=== PATIENT | male | born 1985 | race Caucasian/White ===

== ENCOUNTER → 2022-12-11 | Outpatient (CLI) | payer OTHER ==
--- NOTE | 2022-12-11 17:30 | MR ---
EXAMINATION TYPE: MR lumbar spine wo con DATE OF EXAM: 12/11/2022 COMPARISON: None HISTORY: 37-year-old male M54.5, Low back pain TECHNIQUE: Multiplanar, multisequence images of the lumbar spine were acquired without IV contrast. FINDINGS: Vertebral body heights are preserved and alignment is maintained. There is moderate degenerative disc disease with desiccated, narrow common bulging disc at L5-S1. Casey e associated edematous Modic type I endplate changes present here. Mild degenerative disc disease with desiccation and bulging at L4-L5. Small posterior annular fissure here. 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 There is some facet arthropathy lower lumbar spine and mild ligamentum flavum thickening. Conus medullaris is normal. No suspicious bone marrow replacement. At L4-L5, changes result in mild overall narrowing of the spinal canal. Disc material closely approac hes and may abut the traversing left L5 nerve root. There is moderate left and mild right neuroforami nal stenosis here. At L5-S1, mild bulging disc and facet arthropathy. There is mild left greater than right neuroforamin al stenosis. No spinal canal stenosis. IMPRESSION: 1. Degenerative disc disease and facet arthropathy lower lumbar spine. 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 2. Moderate degenerative disc disease at L5-S1 with some associated edematous Modic type I endplate c hange. Changes result in mild left greater than right neural foraminal stenosis here. No spinal canal stenosis. 3. Mild degenerative disc disease at L4-L5 with an associated posterior annular fissure. Disc materia l closely approaches and may abut the traversing left L5 nerve root. There is moderate left and mild right neuroforaminal stenosis. Mild overall narrowing of the spinal canal at this level.
== END | disposition home or self-care (01) ==
LOC: RADMRIMAIN 05:51
DX: M51.36 Other intervertebral disc degeneration, lumbar region (principal); M99.73 Connective tissue and disc stenosis of intervertebral foramina of lumbar region; M51.37 Other intervertebral disc degeneration, lumbosacral region; M47.816 Spondylosis without myelopathy or radiculopathy, lumbar region
CPT/HCPCS: 72148

== ENCOUNTER → 2023-01-19 | Outpatient (CLI) | payer OTHER ==
[2023-01-19 08:36] VITALS: BP 149/86; PULSE 88; RESP 16; TEMP 98.2
== END ==
LOC: PNWHC3 07:31
PROVIDERS: ATTEND Specialist
DX: M51.37 Other intervertebral disc degeneration, lumbosacral region (principal); K21.9 Gastro-esophageal reflux disease without esophagitis; F32.9 Major depressive disorder, single episode, unspecified
CPT/HCPCS: 99211

== ENCOUNTER 2023-02-03 06:43 | Day surgery (SDC) | payer OTHER ==
[2023-02-02 13:19] VITALS: BMI 26.9
[2023-02-03 06:40] VITALS: RESP 18; TEMP 98
[~2023-02-03 06:43] MED LIST: LACTATED RINGERS 1,000 ML IV SCH
[2023-02-03] MEDS ORDERED: IOPAMIDOL M200 10 ML VIAL ONE (07:11)
[2023-02-03] MEDS ORDERED: methylPREDNISolone ACETATE 80 MG/ML 1 ML VIAL ONE (07:11)
--- NOTE | 2023-02-03 07:18 | P.PCN ---
Date of Procedure: 02/03/23 Procedure(s) Performed: PREOPERATIVE DIAGNOSIS: 1- Lumbar Degenerative Disc Diseases 2-failed back surgery syndrome lumbar area POSTOPERATIVE DIAGNOSIS: 1-lumbar degenerative disc disease. 2-failed back surgery syndrome lumbar area. PROCEDURE 1. Lumbar epidural steroid injection under fluoroscopic guidance at the L4-5 level. (Fluoroscopy imaging was available in radiology department) 2. Lumbar epidurogram. ANESTHESIA: Lidocaine 1% 3 and then only. EBL: Minimal PROCEDURE INDICATION: The patient with low back pain and radiculitis symptoms unresponsive to conservative treatment. Fluoroscopy was used to optimize visualization of the needle placement and to maximize safety. PROCEDURE DESCRIPTION / TECHNIQUE: The patient was seen and identified in the preoperative area. Risks, benefits, complications including but not limited to infections ,bleeding ,allergic re action to the medications ,nerve damage and not complete pain releife , and alternatives were discussed with the patient. The patient agreed to proceed with the procedure and signed the consent, and vital signs were stable. Patient was taken to the OR and time out was completed. The patient was placed in the prone position on procedure table and a pillow was placed under the abdomen to reduce lumbar lordosis. The lumbosacral area was prepped and draped in the usual sterile fashion.ere closely monitored during the procedure. Vital signs was monitered during the entire procedure. Using anterior-posterior fluoroscopy, the L4-5 interlaminar space was identified and the skin over this site was marked and then infiltrated with 1% lidocaine subcutaneously. Subsequently, a 20-gauge Tuohy epidural needle was inserted and advanced toward the epidural space using the ``Loss of resistance technique and guided by AP and lateral fluoroscopy. The correct needle position in the epidural space was verified with the injection of 2 mL of the water soluble contrast dye Isovue 200 contrast and observing an excellent epidurogram with the epidural spread of the dye, after negative aspiration for blood and CSF and in the absence of paresthesias. Again after negative aspiration, a 6 ml mixture containing 80 mg of Depo-medrol ( Preservetive Free ), and 2 ml of preservative free Normal Saline, and 2 ml of preservative free lidocaine 1% solution was injected and a washout of epidurogram was seen. Needle was withdrawn intact, skin was cleansed, and bandages were applied. COMPLICATIONS: None DISPOSITION / PLANS: The patient was placed in a supine position and transferred to the recovery area in a stable condition for observation. There was no evidence of lower extremity motor or sensory deficit after the procedure. Patient was discharged from the recovery room after meeting discharge criteria. Home discharge instructions were given to the patient by the staff. The patient was reexamined prior to discharge. The patient will schedule a follow up in the clinic in 2-4 weeks.
[2023-02-03 07:23] VITALS: BP 134/78; PULSE 73
--- NOTE | 2023-02-03 21:34 | FL ---
EXAMINATION TYPE: FL guided pain mgmt statistic DATE OF EXAM: 02/03/2023 FLUOROSCOPY Fluoroscopy time of 6 seconds was used during lumbar epidural steroid injection. 2 image/s document/ s the procedure. DAP 0.35095 mGycm2.
== END 2023-02-03 07:37 | disposition home or self-care (01) ==
LOC: ORPAIN 06:43
PROVIDERS: ATTEND Specialist
DX: M51.16 Intervertebral disc disorders with radiculopathy, lumbar region (principal)
CPT/HCPCS: 62323; J1040; Q9966

== ENCOUNTER 2023-03-17 06:07 | Day surgery (SDC) | payer OTHER ==
[2023-03-12 15:12] VITALS: BMI 26.6
[2023-03-17 06:56] VITALS: TEMP 98
[2023-03-17] MEDS ORDERED: DEXAMETHASONE SOD PHOSPHATE 10 MG/ML 1 ML VIAL ONE (06:59)
[2023-03-17] MEDS ORDERED: IOPAMIDOL M200 10 ML VIAL ONE (06:59)
--- NOTE | 2023-03-17 07:10 | P.PCN ---
Date of Procedure: 03/17/23 Preoperative Diagnosis: Lumbar radiculopathy Postoperative Diagnosis: Same Description of Procedure: PREOPERATIVE DIAGNOSIS: Lumbar radiculopathy POSTOPERATIVE DIAGNOSIS: Lumbar radiculopathy PROCEDURE 1. Transforaminal epidural steroid injection under fluoroscopic guidance left L4-L5 2. Lumbar epidurogram IMAGING Fluoroscopy was used, images where saved to the medical record ANESTHESIA: Local only PROCEDURE DESCRIPTION / TECHNIQUE: The patient was seen and identified in the preoperative area. Risks, benefits, complications, and alternatives were discussed with the patient. The patient agreed to proceed with the procedure and signed the consent, vital signs were stable prior to the procedure. Patient was taken to the OR and time out was completed. The patient was placed in the prone position on procedure table and a pillow was placed under the abdomen to reduce lumbar lordosis. The lumbosacral area was prepped and draped in the usual sterile fashion. Vital signs were closely monitored during the procedure. Using oblique fluoroscopy, the chin of the "Julian dog" at the pedicle and the skin and deeper tissues just below was localized with 1% lidocaine. Subsequently, a 22-gauge 3.5-inch spinal needle was advanced under a tunneled view fluoroscopic guidance just underneath the chin of the "Julian dog". Under lateral fluoroscopy, the needle was then advanced to the posterior border interforaminal space. After negative aspiration of CSF and blood and with no paresthesias, 1 mL of Omnipaque-240 contrast dye was injected excellent epidurogram. Subsequently, a solution totalling 2ml of dexamethasone and PFNS was injected after negative aspiration (total of 10mg of dexamethasone was used). The needle was removed intact. COMPLICATIONS: None DISPOSITION: The patient was placed in a supine position and transferred to the recovery area in a stable condition for observation. There was no evidence of lower extremity motor or sensory deficit after the procedure. Patient was discharged from the recovery room after meeting discharge criteria. Home discharge instructions were given to the patient by the staff. The patient was reexamined prior to discharge. Follow up as directed. Discussed potential trial of diagnostic medial branch blocks if the pain in the lumbar axial spine process.
[2023-03-17 07:18] VITALS: BP 117/73; PULSE 74; RESP 17
--- NOTE | 2023-03-17 08:56 | FL ---
Intraoperative/procedural fluoroscopic services were provided for left transforaminal lumbar epidural steroid injection. Total fluoroscopy time is 7.0 seconds with a total of 1 submitted image to PACS. Total DAP 0.46140 mGym2. Please see the operative note for further details.
== END 2023-03-17 07:28 | disposition home or self-care (01) ==
LOC: ORPAIN 06:07
PROVIDERS: ATTEND Hospitalist
DX: M54.16 Radiculopathy, lumbar region (principal)
CPT/HCPCS: 64483; J1100; Q9966

== ENCOUNTER → 2023-04-28 | Outpatient (CLI) | payer OTHER ==
[2023-04-28 08:13] VITALS: BP 132/72; PULSE 83; RESP 16; TEMP 98
--- NOTE | 2023-04-28 08:28 | P.PAINPG ---
PQRS Measure Charge Sheet Comment: A 37 yr old male with a history of severe and chronic LBP secondary to lumbar DDD and spondylosis with facet arthropathy without myelopathy presents today for evaluatin s/p L TFESI L4-L5 #1. Pt states he experienced 70% pain relief x 6 wks s/p procedure. Pain level is provoked at 8 /10 in intensity, constant, localized in the lumbar spine, predominantly axial, dull in character w occasional shooting towards the L lateral foot. Pain is provoked by lifting, bending. Pain is alleviated with heat, hot showers medications, PT in 2020, physician guided home stretches daily since 2020, topical, swimming, repositioning and rest. Oswestry axial pain score at 16. Interventional pain procedures completed include VANESSA L4-L5 x1, L TFESI L4-L5 x1 Patient is currently on Aleve, Naproxen Patient denies any side effects of the medication(s), denies excessive drowsiness or sleepiness, denies suicidal ideation and reports that the current pain medication is helping to control the pain and improve activities of daily living. Patient denies any motor or sensory deficits. Patient denies any fever or night sweats, denies any change in the bowel movements or urination. Physical Examination: -Constitutional: Cooperative. Not in acute distress . - Neurologic: Cranial nerve II to XII intact. No focal neurological deficits. - Psychatric: Alert & oriented x 3. Matching mood & appropriate affect. Judgment and insight intact. - Musculoskeletal: Cervical spine: Muscle bulk/ tone/ strength in the bilateral upper extremities normal Vertebral body tenderness to palpation over Spurling test positive Distraction test positive Facet loading test positive TTP Thoracic spine Muscle bulk / tone/ strength in the bilateral paraspinal muscles normal Vertebral body tender to palpation over Facet loading test positive TTP Lumbar spine: Vertical incisional scars intact Motor bulk/ tone/ strength lower extremities , thigh and legs : 5/5 Deep tendon reflexes : Normal Knee Jerk. Normal Ankle Jerk . Vertebral body tenderness to palpation over L5 Villalpando Test positive Lumbar Facet Loading Test positive Straight Leg Raise: positive at 30 degrees right side/ left side Gaenslen's Test positive Sacral spine : Severe tenderness over the Sacroiliac joint: right side / left side Range of motion: Flexion of the lumbar spine <60 degrees Range of motion: Extension of the lumbar spine <20 degrees Gaenslen's Test positive right side / left side Michelle test: positive right side / left side Thigh Thrust Test positive right side / left side Sacral Thrust Test positive right side / left side Assessment and plan: Chronic LBP secondary to lumbar DDD, spondylosis with facet arthropathy without myelopathy Recommendation of L TFESI L5-S1 #3. May need a series of injections for optimal pain relief. Risks, benefits of procedure discussed and pt verbalized understanding. Admits to anticoagulant use or medical history of diabetes. Protocol for discontinuation/ continuation of medications lulu procedure discussed. All questions answered. I have spent less than 30 minutes on patient care today. Dr Shukla was available by phone for the evaluation of this patient. The time was used to review the medical records including relevant urine studies and Prescription history (MAPs), review of the available imaging, evaluation and examination of the patient, coordination of care with the medical staff and if applicable referring physicians, as well as creation of the medical record - Pain Location Bilateral Lower Back Non-Pharmacological Interventions: Heat, Home Exercise, Ice, Inactivity, Position/Reposition, Sitting, Stretching Pharmacological Interventions: Epidural, PRN Medication, Topical Medication PQRS Narrative: Hx Alcohol Use (MH) No Home Medications: Ambulatory Orders Ibuprofen 800 mg PO BID 03/12/23 Controlled Substance Measures - Controlled Substance Measures Is patient prescribed a controlled substance at discharge?: No
== END ==
LOC: PNWHC3 07:13
PROVIDERS: ATTEND Specialist
DX: M51.36 Other intervertebral disc degeneration, lumbar region (principal); M47.816 Spondylosis without myelopathy or radiculopathy, lumbar region; G89.29 Other chronic pain
CPT/HCPCS: 99211

== ENCOUNTER 2023-05-12 07:40 | Day surgery (SDC) | payer OTHER ==
[2023-05-12 08:19] VITALS: TEMP 97.6
[2023-05-12] MEDS ORDERED: DEXAMETHASONE SOD PHOSPHATE 10 MG/ML 1 ML VIAL ONE (08:59)
[2023-05-12] MEDS ORDERED: IOPAMIDOL M200 10 ML VIAL ONE (08:59)
[2023-05-12] MEDS ORDERED: ROPIVACAINE 5MG/ML 20ML VIAL ONE (08:59)
[2023-05-12 09:35] VITALS: BP 113/73; PULSE 83; RESP 18
--- NOTE | 2023-05-12 11:01 | P.PCN ---
Description of Procedure: PREOPERATIVE DIAGNOSIS: 1-Lumbar radiculopathy . 2-lumbar degenerative disc disease. 3-lumbar spondylosis with lumbar facet arthropathy without myelopathy POSTOPERATIVE DIAGNOSIS: 1-lumbar radiculopathy. 2-lumbar degenerative disc disease. 3-lumbar spondylosis with facet arthropathy without myelopathy PROCEDURE 1. Transforaminal epidural steroid injection under fluoroscopic guidance at left L4-5 level. (Fluoroscopy images stored on file in the radiology Department ) 2. Lumbar epidurogram . ANESTHESIA: Local with 1% lidocaine 5 ml. subcutaneously. Continuous pulse ox, EKG, blood pressure and verbal communication was maintained with the patient. EBL: Minimal PROCEDURE INDICATION: The patient with low back pain and radiculopathy symptoms unresponsive to conservative treatment. The patient was seen and identified in the preoperative area. Risks, benefits, complications, and alternatives were discussed with the patient. The patient agreed to proceed with the procedure and signed the consent. IV was started, and vital signs were stable. PROCEDURE DESCRIPTION / TECHNIQUE: After getting consent, patient was taken to the OR and time out was completed. The patient was placed in the prone position on procedure table and a pillow was placed under the abdomen to reduce lumbar lordosis. The lumbosacral area was prepped and draped in the usual sterile fashion. Critical pause was taken. After injecting 5 mL of plain 1% lidocaine subcutaneously, under oblique view of the fluoroscope, a 22-gauge spinal needle was introduced under the tunnel view of the fluoroscope on the left side and the needle was advanced so that the tip of the needle was at the posterior inferior quadrant of the intervertebral foramen at the lateral view of the fluoroscope and in the lateral third of the facet column in the AP view of the fluoroscope. Negative CSF, negative blood, negative paresthesia. After needle position confirmation by AP and cross table lateral view, 3 mL of Isovue-M 200 contrast was injected under continuous fluoroscope. Contrast was noted in the intrathecal or intravascular space. The epidurogram was noted. Again after repeated negative aspiration 2-1/2 mL solution was injected which consists 1-1/2 mL of normal saline mixed with 1 mL of 20/10 mg dexamethasone. Needle was removed . At the end of the procedure, skin was cleansed, and bandages were applied. DISPOSITION / PLANS: No complication. The patient tolerated the procedure well. The patient was placed in a supine position and transferred to the recovery area in a stable condition for observation. There was no evidence of lower extremity motor or sensory deficit after the procedure. Patient was discharged from the recovery room after meeting discharge criteria. Home discharge instructions were given to the patient by the staff. The patient was reexamined prior to discharge.
--- NOTE | 2023-05-12 15:19 | FL ---
EXAMINATION TYPE: FL guided pain mgmt statistic DATE OF EXAM: 05/12/2023 FLUOROSCOPY Fluoroscopy time of 64.1 seconds was used during transforaminal lumbar epidural injection. 2 image/s document/s the procedure. 0.29573 mGycm2 DAP.
== END 2023-05-12 09:49 | disposition home or self-care (01) ==
LOC: ORPAIN 07:40
PROVIDERS: ATTEND Pain Medicine Interventional Pain Medicine
DX: M51.16 Intervertebral disc disorders with radiculopathy, lumbar region (principal); M47.26 Other spondylosis with radiculopathy, lumbar region; Z79.82 Long term (current) use of aspirin
CPT/HCPCS: 64483; J1100; Q9966; J2795

== ENCOUNTER → 2023-06-29 | Outpatient (CLI) | payer OTHER ==
[2023-06-29 08:19] VITALS: BP 135/80; PULSE 98; RESP 15; TEMP 98.6
--- NOTE | 2023-06-29 13:58 | P.PAINPG ---
PQRS Measure Charge Sheet Comment: A 37 yr old male with a history of severe and chronic LBP secondary to lumbar DDD and spondylosis with facet arthropathy without myelopathy presents today for evaluatin s/p L TFESI L4-L5 #2. Pt states he experienced 75% pain relief x 6 wks s/p procedure. Pain level is provoked at 6 /10 in intensity, constant, localized in the lumbar spine, predominantly axial, dull in character without shooting pain. Pain is provoked by standing for periods >20 min. Pain is alleviated with heat, hot showers medications, PT in 2020, physician guided home stretches daily since 2020, topical, swimming, repositioning and rest. Oswestry axial pain score at 14. Interventional pain procedures completed include VANESSA L4-L5 x1, L TFESI L4-L5 x2 Patient is currently on Aleve, Naproxen, Tyl Patient denies any side effects of the medication(s), denies excessive drowsiness or sleepiness, denies suicidal ideation and reports that the current pain medication is helping to control the pain and improve activities of daily living. Patient denies any motor or sensory deficits. Patient denies any fever or night sweats, denies any change in the bowel movements or urination. Physical Examination: -Constitutional: Cooperative. Not in acute distress . - Neurologic: Cranial nerve II to XII intact. No focal neurological defici ts. - Psychatric: Alert & oriented x 3. Matching mood & appropriate affect. Judgment and insight intact. - Musculoskeletal: Cervical spine: Muscle bulk/ tone/ strength in the bilateral upper extremities normal Vertebral body tenderness to palpation over Spurling test positive Distraction test positive Facet loading test positive TTP Thoracic spine Muscle bulk / tone/ strength in the bilateral paraspinal muscles normal Vertebral body tender to palpation over Facet loading test positive TTP Lumbar spine: Vertical incisional scars intact Motor bulk/ tone/ strength lower extremities , thigh and legs : 5/5 Deep tendon reflexes : Normal Knee Jerk. Normal Ankle Jerk . Vertebral body tenderness to palpation over L5 Villalpando Test positive Lumbar Facet Loading Test positive over BL L3-L4, L4-L5 Straight Leg Raise: positive at 30 degrees right side/ left side Gaenslen's Test positive Sacral spine : Severe tenderness over the Sacroiliac joint: right side / left side Range of motion: Flexion of the lumbar spine <60 degrees Range of motion: Extension of the lumbar spine <20 degrees Gaenslen's Test positive right side / left side Michelle test: positive right side / left side Thigh Thrust Test positive right side / left side Sacral Thrust Test positive right side / left side Assessment and plan: Chronic LBP secondary to lumbar DDD, spondylosis with facet arthropathy without myelopathy Recommendation of BL MBB L3-L4, L4-L5 #1. May need a series of injections, up until RFA, for optimal pain relief. Risks, benefits of procedure discussed and pt verbalized understanding. Admits to anticoagulant use or medical history of diabetes. Minimal anesthesia including Versed and Fentanyl provided if clinically indicated. Protocol for discontinuation/ continuation of medications lulu procedure discussed. All questions answered. I have spent less than 30 minutes on patient care today. Dr Shukla was available by phone for the evaluation of this patient. The time was used to review the medical records including relevant urine studies and Prescription history (MAPs), review of the available imaging, evaluation and examination of the patient, coordination of care with the medical staff and if applicable referring physicians, as well as creation of the medical record PQRS Narrative: Hx Alcohol Use (MH) No Home Medications: Ambulatory Orders Acetaminophen Tab [Tylenol Tab] 1,000 mg PO Q6HR PRN 05/11/23 Ibuprofen 1 - 2 tab PO Q6H PRN 05/11/23 Controlled Substance Measures - Controlled Substance Measures Is patient prescribed a controlled substance at discharge?: No
== END ==
LOC: PNWHC3 07:32
PROVIDERS: ATTEND Specialist
DX: M51.36 Other intervertebral disc degeneration, lumbar region (principal); M47.816 Spondylosis without myelopathy or radiculopathy, lumbar region; G89.29 Other chronic pain
CPT/HCPCS: 99211

== ENCOUNTER 2023-07-17 06:22 | Day surgery (SDC) | payer OTHER ==
[2023-07-17] MEDS: LACTATED RINGERS 1,000 ML IV SCH (06:55)
[2023-07-17 07:14] VITALS: RESP 16; TEMP 98
[2023-07-17] MEDS ORDERED: fentaNYL (PF) 50 MCG/ML 2 ML AMP ONE (07:49)
[2023-07-17] MEDS ORDERED: MIDAZOLAM 2 MG/2 ML VIAL ONE (07:49)
[2023-07-17] MEDS ORDERED: ROPIVACAINE 5MG/ML 20ML VIAL ONE (07:51)
[2023-07-17] MEDS: IV FLUID CONTINUATION 1,000 ML IV ONE (08:22)
--- NOTE | 2023-07-17 08:31 | P.PCN ---
Description of Procedure: Preprocedure diagnosis. 1. Lumbar spondylosis with facet joint arthropathy without myelopathy. 2. Lumbar degenerative disc disease. Postprocedure diagnosis. As above. Procedure done. Bilateral diagnostic block with local anesthetics at L2,L3, L4 medial branch to target the facet joint L3-4and L4-5 with fluoroscopic guidance (fluoroscopy images are available in the radiology department) . Anesthesia. As per anesthesia department. In OR, continuous pulse ox, EKG, blood pressure and verbal communication was maintained. Blood loss. Minimal. Indication. The patient has low back pain secondary to lumbar facet joint arthropathy. Discussed the procedure and alternative and complications which includes infection, bleeding, nerve damage, paralysis ,aggravation of pain. Patient understands and all questions were answered. Patient iunderstands that if any pain relief occurs it will last for a few hours to a few days maximum. Procedure description. After getting consent patient was taken in the OR in prone position. Back prepped with chlorhexidine and draped in sterile fashion. After injecting 5 mL of plain 1% lidocaine subcutaneously, a 22-gauge spinal needle was introduced under tunnel vision of the fluoroscope at the junction of the superior articular process with RIGHT L3 transverse process. With slight oblique fluoroscope, after injecting 5 mL of plain 1% lidocaine subcutaneously, a 22-gauge spinal needle was introduced under tunnel vision of the fluoroscope at the junction of the superior articular process with RIGHT L5 transverse process, junction of the superior articular process with the RIGHT L4 transverse process. Negative CSF, negative blood, negative paresthesia. After needle p osition confirmation by AP and crosstable lateral view, after negative aspiration, half milliliters of solution were injected at each point. Total 1- 1/2 mL of solution was injected on the right side which consists of 0.5% ropivacaine mixed with 20 mg of Depo-Medrol. In exactly same way, LEFT sided injections were done at the following 3 points. Junction of the superior articular process with left L3 transverse process, junction of the superior articular process with the left L5 transverse process, junction of the superior articular process with left L4 transverse process using 0.5 mL of solution at each point. Total 1-1/2 mL of solution was injected on the left side which consists of 0.5% ropivacaine mixed with 20 mg of Depo-Medrol. Spinal needles were taken out and bandages were applied. Disposition. Patient tolerated the procedure well. No complication. Discharged home in stable condition.
[2023-07-17 08:50] VITALS: BP 119/69; PULSE 64
--- NOTE | 2023-07-17 11:54 | FL ---
EXAMINATION TYPE: FL guided pain mgmt statistic DATE OF EXAM: 07/17/2023 FLUOROSCOPY Fluoroscopy time of 1 minute 7 seconds was used during bilateral lumbar facet blocks. 3 image/s docu ment/s the procedure. 0.92684 mGycm2 DAP
== END 2023-07-17 08:51 | disposition home or self-care (01) ==
LOC: ORPAIN 06:22
PROVIDERS: ATTEND Pain Medicine Interventional Pain Medicine
DX: M47.816 Spondylosis without myelopathy or radiculopathy, lumbar region (principal); M51.36 Other intervertebral disc degeneration, lumbar region

== ENCOUNTER → 2023-08-06 | Outpatient (CLI) | payer OTHER ==
[2023-08-06 08:50] VITALS: BP 121/84; PULSE 78; RESP 16; TEMP 97.5
--- NOTE | 2023-08-06 12:50 | P.PAINPG ---
PQRS Measure Charge Sheet Comment: A 37 yr old male with a history of severe and chronic LBP secondary to lumbar DDD and spondylosis with facet arthropathy without myelopathy presents today for evaluation s/p BL MBB L4-L5, L5-S1 #1. Pt states he experienced 100 % pain relief x 4 days s/p procedure. Pain level is provoked at 6 /10 in intensity, constant, localized in the lumbar spine, predominantly axial, dull in character without shooting pain. Pain is provoked by standing for periods >20 min. Pain is alleviated with heat, hot showers medications, PT in 2020, physician guided home stretches daily since 2020, topical, swimming, repositioning and rest. Oswestry axial pain score at 14. Interventional pain procedures completed include VANESSA L4-L5 x1, L TFESI L4-L5 x2, BL MBB L3-L5 x1 Patient is currently on Aleve, Naproxen, Tyl Patient denies any side effects of the medication(s), denies excessive drowsiness or sleepiness, denies suicidal ideation and reports that the current pain medication is helping to control the pain and improve activities of daily living. Patient denies any motor or sensory deficits. Patient denies any fever or night sweats, denies any change in the bowel movements or urination. Physical Examination: -Constitutional: Cooperative. Not in acute distress . - Neurologic: Cranial nerve II to XII intact. No focal neurological deficits. - Psychatric: Alert & oriented x 3. Matching mood & appropriate affect. Judgment and insight intact. - Musculoskeletal: Cervical spine: Muscle bulk/ tone/ strength in the bilateral upper extremities normal Vertebral body tenderness to palpation over Spurling test positive Distraction test positive Facet loading test positive TTP Thoracic spine Muscle bulk / tone/ strength in the bilateral paraspinal muscles normal Vertebral body tender to palpation over Facet loading test positive TTP Lumbar spine: Vertical incisional scars intact Motor bulk/ tone/ strength lower extremities , thigh and legs : 5/5 Deep tendon reflexes : Normal Knee Jerk. Normal Ankle Jerk . Vertebral body tenderness to palpation over L5 Villalpando Test positive Lumbar Facet Loading Test positive over BL L3-L4, L4-L5 Straight Leg Raise: positive at 30 degrees right side/ left side Gaenslen's Test positive Sacral spine : Severe tenderness over the Sacroiliac joint: right side / left side Range of motion: Flexion of the lumbar spine <60 degrees Range of motion: Extension of the lumbar spine <20 degrees Gaenslen's Test positive right side / left side Michelle test: positive right side / left side Thigh Thrust Test positive right side / left side Sacral Thrust Test positive right side / left side Assessment and plan: Chronic LBP secondary to lumbar DDD, spondylosis with facet arthropathy without myelopathy Recommendation of BL MBB L3-L4, L4-L5 #2. May need a series of injections, up until RFA, for optimal pain relief. Risks, benefits of procedure discussed and pt verbalized understanding. Admits to anticoagulant use or medical history of diabetes. Minimal anesthesia including Versed and Fentanyl provided if clinically indicated. Protocol for discontinuation/ continuation of medications lulu procedure discussed. All questions answered. I have spent less than 30 minutes on patient care today. Dr Shukla was available by phone for the evaluation of this patient. The time was used to review the medical records including relevant urine studies and Prescription history (MAPs), review of the available imaging, evaluation and examination of the patient, coordination of care with the medical staff and if applicable referring physicians, as well as creation of the medical record PQRS Narrative: Hx Alcohol Use (MH) No Home Medications: Ambulatory Orders Acetaminophen Tab [Tylenol Tab] 1,000 mg PO Q6HR PRN 05/11/23 Controlled Substance Measures - Controlled Substance Measures Is patient prescribed a controlled substance at discharge?: No
== END ==
LOC: PNWHC3 07:56
PROVIDERS: ATTEND Specialist
DX: M51.36 Other intervertebral disc degeneration, lumbar region (principal); M47.816 Spondylosis without myelopathy or radiculopathy, lumbar region; G89.29 Other chronic pain
CPT/HCPCS: 99211

== ENCOUNTER → 2023-08-28 | Day surgery (SDC) | payer OTHER ==
[2023-08-25 16:29] VITALS: BMI 28.1
[~2023-08-28] MED LIST changes: -LACTATED RINGERS 1,000 ML IV SCH; +MIDAZOLAM 2 MG/2 ML VIAL ONE; +ONDANSETRON 4 MG/2 ML VIAL ONE; +ROPIVACAINE 5MG/ML 20ML VIAL ONE; +fentaNYL (PF) 50 MCG/ML 2 ML AMP ONE
[2023-08-28] MEDS: LACTATED RINGERS 1,000 ML IV ONE (07:19)
[2023-08-28] MEDS: ONDANSETRON 4 MG/2 ML VIAL IVP ONE (07:25)
[2023-08-28 07:55] VITALS: TEMP 96.8
[2023-08-28] MEDS: LACTATED RINGERS 1,000 ML IV SCH (08:10)
--- NOTE | 2023-08-28 08:33 | FL ---
Fluoroscopy History: Ned Lumbar Facet Ned Lumbar Facet 50sec fluoro time .[id number] DAP
[2023-08-28 09:19] VITALS: BP 113/70; PULSE 65; RESP 20
== END ==
LOC: ORPAIN 06:47
PROVIDERS: ATTEND Pain Medicine Interventional Pain Medicine
DX: M51.36 Other intervertebral disc degeneration, lumbar region (principal); M47.816 Spondylosis without myelopathy or radiculopathy, lumbar region; Z79.83 Long term (current) use of bisphosphonates
CPT/HCPCS: 64494 ×2; 99152; 64493; J2250; J2405; J3010; J2795

== ENCOUNTER → 2023-09-16 | Outpatient (CLI) | payer OTHER ==
[2023-09-16 08:10] VITALS: BP 132/76; PULSE 77; RESP 15; TEMP 98.5
--- NOTE | 2023-09-16 14:09 | P.PAINPG ---
PQRS Measure Charge Sheet Comment: A 37 yr old male with a history of severe and chronic LBP secondary to lumbar DDD and spondylosis with facet arthropathy without myelopathy presents today for evaluation s/p BL MBB L4-L5, L5-S1 #2. Pt states he experienced 80 % pain relief x 2 days s/p procedure. Pain level is provoked at 6 /10 in intensity, constant, localized in the lumbar spine, predominantly axial, dull in character without shooting pain. Pain is provoked by standing for periods >20 min. Pain is alleviated with heat, hot showers medications, PT in 2020, physician guided home stretches daily since 2020, topical, swimming, repositioning and rest. Oswestry axial pain score at 13. Interventional pain procedures completed include VANESSA L4-L5 x1, L TFESI L4-L5 x2, BL MBB L3-L5 x2 Patient is currently on Aleve, Naproxen, Tyl Patient denies any side effects of the medication(s), denies excessive drowsiness or sleepiness, denies suicidal ideation and reports that the current pain medication is helping to control the pain and improve activities of daily living. Patient denies any motor or sensory deficits. Patient denies any fever or night sweats, denies any change in the bowel movements or urination. Physical Examination: -Constitutional: Cooperative. Not in acute distress . - Neurologic: Cranial nerve II to XII intact. No focal neurological deficits. - Psychatric: Alert & oriented x 3. Matching mood & appropriate affect. Judgment and insight intact. - Musculoskeletal: Cervical spine: Muscle bulk/ tone/ strength in the bilateral upper extremities normal Vertebral body tenderness to palpation over Spurling test positive Distraction test positive Facet loading test positive TTP Thoracic spine Muscle bulk / tone/ strength in the bilateral paraspinal muscles normal Vertebral body tender to palpation over Facet loading test positive TTP Lumbar spine: Vertical incisional scars intact Motor bulk/ tone/ strength lower extremities , thigh and legs : 5/5 Deep tendon reflexes : Normal Knee Jerk. Normal Ankle Jerk . Vertebral body tenderness to palpation over L5 Villalpando Test positive Lumbar Facet Loading Test positive over BL L3-L4, L4-L5 Straight Leg Raise: positive at 30 degrees right side/ left side Gaenslen's Test positive Sacral spine : Severe tenderness over the Sacroiliac joint: right side / left side Range of motion: Flexion of the lumbar spine <60 degrees Range of motion: Extension of the lumbar spine <20 degrees Gaenslen's Test positive right side / left side Michelle test: positive right side / left side Thigh Thrust Test positive right side / left side Sacral Thrust Test positive right side / left side Assessment and plan: Chronic LBP secondary to lumbar DDD, spondylosis with facet arthropathy without myelopathy Recommendation of BL RFA L3-L4, L4-L5. Exhibited optimal pain relief w previous MBB procedures. Risks, benefits of procedure discussed and pt verbalized understanding. Admits to anticoagulant use or medical history of diabetes. Minimal anesthesia including Versed and Fentanyl provided if clinically indicated. Protocol for discontinuation/ continuation of medications lulu procedure discussed. All questions answered. I have spent less than 30 minutes on patient care today. Dr Shukla was available by phone for the evaluation of this patient. The time was used to review the medical records including relevant urine studies and Prescription history (MAPs), review of the available imaging, evaluation and examination of the patient, coordination of care with the medical staff and if applicable referring physicians, as well as creation of the medical record PQRS Narrative: Hx Alcohol Use (MH) No Home Medications: Ambulatory Orders Acetaminophen Tab [Tylenol Tab] 1,000 mg PO DAILY PRN 05/11/23 Controlled Substance Measures - Controlled Substance Measures Is patient prescribed a controlled substance at discharge?: No
== END ==
LOC: PNWHC3 07:27
PROVIDERS: ATTEND Specialist
DX: M51.36 Other intervertebral disc degeneration, lumbar region (principal); M47.816 Spondylosis without myelopathy or radiculopathy, lumbar region; G89.29 Other chronic pain
CPT/HCPCS: 99211

== ENCOUNTER 2023-10-09 06:28 | Day surgery (SDC) | payer OTHER ==
[2023-10-06 15:50] VITALS: BMI 28.1
[2023-10-09] MEDS: LACTATED RINGERS 1,000 ML IV SCH (07:21)
[2023-10-09] MEDS ORDERED: LACTATED RINGERS 1,000 ML IV SCH (07:30)
[2023-10-09] MEDS ORDERED: fentaNYL (PF) 50 MCG/ML 2 ML AMP ONE (07:34)
[2023-10-09] MEDS ORDERED: MIDAZOLAM 2 MG/2 ML VIAL ONE (07:34)
[2023-10-09] MEDS ORDERED: TRIAMCINOLONE ACETONIDE 40 MG/ML 1 ML VIAL ONE (07:37)
[2023-10-09] MEDS ORDERED: ROPIVACAINE 5MG/ML 20ML VIAL ONE (07:37)
[2023-10-09 07:38] VITALS: RESP 16; TEMP 98
[2023-10-09] MEDS: IV FLUID CONTINUATION 1,000 ML IV ONE (08:09)
--- NOTE | 2023-10-09 08:30 | FL ---
EXAMINATION TYPE: FL guided pain mgmt statistic Intraoperative/procedural fluoroscopic services were provided. Total fluoroscopy time is 17.3 seconds with a total of 7 submitted images to PACS. Please s ee the operative/procedural note for further details. DAP: [id number] mGym2
[2023-10-09 08:35] VITALS: BP 112/75; PULSE 71
--- NOTE | 2023-10-09 10:08 | P.PCN ---
Date of Procedure: 10/09/23 Description of Procedure: Pre- and Post-operative Diagnosis: Lumbar facet arthropathy, and lumbar spondylosis without myelopathy. Procedure: Bilateral L3-L4, and L4-5 radiofrequency thermocoagulation of medial branch under fluoroscopic guidance Surgeon: Kamila Huber Anesthesia: Local: 1% Lidocaine, IV sedation : Midazolam 2 mg, and fentanyl 50 + 50 micrograms. Complications: None Estimated blood loss: None. Specimen removed: None Fluoroscopic image: Saved to patient electronic medical records. Indications for Procedure: The patient is well known to pain clinic for his chronic low back pain management. The lumbar facet loading test was positive with a clinical diagnosis of lumbar facet arthropathy. Patient had marked decrease in pain after the diagnostic medial branch procedure. Came here for radiofrequency ablation for longer pain relief. PROCEDURE DESCRIPTION: The patient was seen and identified in the preoperative area. Risks, benefits, complications, and alternatives were discussed with the patient. The patient agreed to proceed with the procedure and signed the consent. IV was started. Vital signs were stable. Patient was taken to the procedure room and timeout was completed. The patient was placed in the prone position on procedure table and a pillow was placed under the abdomen to reduce lumbar lordosis. The lumbosacral area was prepped and draped in the usual sterile fashion. Critical pause was taken. Vital signs were closely monitored during the procedure. The fluoroscopic camera was placed in the anteroposterior position to identify the junction of superior articular process and its corresponding injection with its transverse process of Right side L3 L4, and L5 which were anesthetized with 1% lidocaine. We used 18-gauge 100-mm curved, sharp radiofrequency cannula with 10-mm active tip for the procedure. The first cannula was guided by fluoroscopy into the L5 superior articular process and its corresponding junction with its transverse process and pedicle. The second cannula was guided by fluoroscopy into the L4 SAP and its corresponding junction with its transverse process and its pedicle. The third cannula was guided by fluoroscopy into the L4 SAP and its corresponding junction with its transverse process and its pedicle. After confirmation of needle tip position on oblique view, and lateral view each site underwent motor testing at 2 Hz and 0 to 2.5 volts, and there was good motor stimulation in the back and no radicular symptoms or paresthesias. After confirmation of motor testing, 0.5 mL of block solution injected at each site . Block solution contained 4 mL of 0.5% ropivacaine preservative free mixed with 40 MG of Kenalog. At this time, each site was ablated using continuous radiofrequency mode at 80 degrees Celsius for 90 seconds at each level. At the end of the procedure, each needle was retracted approximately 1 cm and the skin was infiltrated with 0.5% ropivacaine preservative free 1 ml at each site. Skin was cleansed and bandages were applied. Entire procedure repeated on the left side. Skin was cleansed and bandages were applied. Preprocedure VAS: 4 -5 out of 10 in severity Postprocedure VAS: 2-3 out of 10 in severity Disposition : The patient tolerated the procedure very well. The patient was transferred to the recovery room and remained stable until discharged home. The patient was given detailed discharge instructions for infection, bleeding, and increased pain at the injection site, and was advised to seek immediate medical attention should significant side effects develop. The patient will be scheduled with Pain Clinic within 4 weeks.
== END 2023-10-09 08:41 | disposition home or self-care (01) ==
LOC: ORPAIN 06:28
DX: M47.816 Spondylosis without myelopathy or radiculopathy, lumbar region (principal); K21.9 Gastro-esophageal reflux disease without esophagitis; F43.10 Post-traumatic stress disorder, unspecified; Z79.899 Other long term (current) drug therapy
CPT/HCPCS: 64635; 64636 ×2; 99152; 99153; J2250; J3301; J3010; J2795

== ENCOUNTER → 2023-11-02 | Outpatient (CLI) | payer OTHER ==
[2023-11-02 07:41] VITALS: BP 136/87; PULSE 99; RESP 16
--- NOTE | 2023-11-02 14:59 | P.PAINPG ---
PQRS Measure Charge Sheet Comment: A 37 yr old male with a history of severe and chronic LBP secondary to lumbar DDD and spondylosis with facet arthropathy without myelopathy presents today for evaluation s/p BL RFA L3-L5, L4-L5. Pt states he experienced 90 % pain relief s/p procedure. Pain level is provoked at 1 /10 in intensity, constant, localized in the lumbar spine, predominantly axial, dull in character without shooting pain. Pain is provoked by standing for periods >20 min. Pain is alleviated with heat, hot showers medications, PT in 2020, physician guided home stretches daily since 2020, topical, swimming, repositioning and rest. Oswestry axial pain score at 8. Interventional pain procedures completed include VANESSA L4-L5 x1, L TFESI L4-L5 x2, BL RFA L3-L5 (September 2023) Patient is currently on Aleve, Naproxen, Tyl Patient denies any side effects of the medication(s), denies excessive drowsiness or sleepiness, denies suicidal ideation and reports that the current pain medication is helping to control the pain and improve activities of daily living. Patient denies any motor or sensory deficits. Patient denies any fever or night sweats, denies any change in the bowel movements or urination. Physical Examination: -Constitutional: Cooperative. Not in acute distress . - Neurologic: Cranial nerve II to XII intact. No focal neurological deficits. - Psychatric: Alert & oriented x 3. Matching mood & appropriate affect. Judgment and insight intact. - Musculoskeletal: Cervical spine: Muscle bulk/ tone/ strength in the bilateral upper extremities normal Vertebral body tenderness to palpation over Spurling test positive Distraction test positive Facet loading test positive TTP Thoracic spine Muscle bulk / tone/ strength in the bilateral paraspinal muscles normal Vertebral body tender to palpation over Facet loading test positive TTP Lumbar spine: Vertical incisional scars intact Motor bulk/ tone/ strength lower extremities , thigh and legs : 5/5 Deep tendon reflexes : Normal Knee Jerk. Normal Ankle Jerk . Vertebral body tenderness to palpation over L5 Villalpando Test positive Lumbar Facet Loading Test positive over BL L3-L4, L4-L5 Straight Leg Raise: positive at 30 degrees right side/ left side Gaenslen's Test positive Sacral spine : Severe tenderness over the Sacroiliac joint: right side / left side Range of motion: Flexion of the lumbar spine <60 degrees Range of motion: Extension of the lumbar spine <20 degrees Gaenslen's Test positive right side / left side Michelle test: positive right side / left side Thigh Thrust Test positive right side / left side Sacral Thrust Test positive right side / left side Assessment and plan: Chronic LBP secondary to lumbar DDD, spondylosis with facet arthropathy without myelopathy Will manage residual pain and may RTC on an as needed basis. All questions answered. I have spent less than 30 minutes on patient care today. Dr Shukla was available by phone for the evaluation of this patient. The time was used to review the medical records including relevant urine studies and Prescription history (MAPs), review of the available imaging, evaluation and examination of the patient, coordination of care with the medical staff and if applicable referring physicians, as well as creation of the medical record PQRS Narrative: Hx Alcohol Use (MH) No Home Medications: Ambulatory Orders Acetaminophen Tab [Tylenol Tab] 1,000 mg PO DAILY PRN 05/11/23 Controlled Substance Measures - Controlled Substance Measures Is patient prescribed a controlled substance at discharge?: No
== END ==
LOC: PNWHC3 07:24
PROVIDERS: ATTEND Specialist
DX: M47.816 Spondylosis without myelopathy or radiculopathy, lumbar region (principal); M51.36 Other intervertebral disc degeneration, lumbar region
CPT/HCPCS: 99211